=== PATIENT | male | born 1985 | race Caucasian/White ===

== ENCOUNTER 2018-03-08 17:58 | Emergency (ER) | payer OTHER ==
[2018-03-08 18:32] VITALS: BP 108/65
[2018-03-08] MEDS ORDERED: Albuterol HFA INHALER* 8 gm MDI INH ONE (19:07)
--- NOTE | 2018-03-08 19:09 | UC ---
Respiratory Complaint HPI - HPI Summary HPI Summary: Patient urgent care with cough chest congestion his ran out of his albuterol inhaler but soft and noticed that he's got postnasal drip and sore throat the morning and some swollen ice as well - History of Current Complaint Chief Complaint: UCRespiratory Stated Complaint: ASTHMA/CONGESTION/ST Time Seen by Provider: 03/08/18 18:57 Hx Obtained From: Patient Onset/Duration: Gradual Onset, Lasting Days Timing: Constant Pain Intensity: 0 Aggravating Factors: Nothing Alleviating Factors: Nothing Associated Signs And Symptoms: Positive: Pleuritic Chest Pain, Nasal Congestion , Sinus Discomfort - Allergies/Home Medications Allergies/Adverse Reactions: Allergies Allergy/AdvReac Type Severity Reaction Status Date / Time No Known Allergies Allergy Verified 03/08/18 18:32 Home Medications: Home Medications Ibuprofen TAB* [Motrin TAB* 600 MG] 600 mg PO Q8H PRN 03/08/18 [History Confirmed 03/08/18] Loratadine [Claritin 10 MG CAP] 10 mg PO DAILY 03/08/18 [History Confirmed 03/08] PMH/Surg Hx/FS Hx/Imm Hx Previously Healthy: No Respiratory History: Asthma - Surgical History Surgical History: Yes Surgery Procedure, Year, and Place: hernia surgery as a child. finger surgery - Family History Known Family History: Positive: None - Social History Occupation: Employed Full-time - Never tonight Lives: With Family Alcohol Use: Occasionally Substance Use Type: None Smoking Status (MU): Never Smoked Tobacco Review of Systems Constitutional: Negative Skin: Negative Eyes: Negative ENT: Sore Throat, Nasal Discharge Respiratory: Cough Cardiovascular: Negative Gastrointestinal: Negative Genitourinary: Negative Motor: Negative Neurovascular: Negative Musculoskeletal: Negative Neurological: Negative Psychological: Negative Is Patient Immunocompromised?: No All Other Systems Reviewed And Are Negative: Yes Physical Exam Triage Information Reviewed: Yes Appearance: Well-Appearing, No Pain Distress, Well-Nourished Vital Signs: Initial Vital Signs Temp 98.7 F 03/08/18 18:27 Pulse 90 03/08/18 18:27 Resp 18 03/08/18 18:27 BP 108/65 03/08/18 18:27 Pulse Ox 97 03/08/18 18:27 Vital Signs Reviewed: Yes Eye Exam: Normal Eyes: Positive: Conjunctiva Clear ENT Exam: Normal ENT: Positive: Normal ENT inspection, Hearing grossly normal, Pharynx normal, Nasal congestion, Nasal drainage, Uvula midline. Negative: Trismus, Muffled voice, Hoarse voice, Dental tenderness, Sinus tenderness Dental Exam: Normal Neck exam: Normal Neck: Positive: Supple, Nontender Respiratory Exam: Normal Respiratory: Positive: Chest non-tender, Normal breath sounds, No respiratory distress, No accessory muscle use, Wheezing Cardiovascular Exam: Normal Cardiovascular: Positive: RRR, No Murmur, Pulses Normal, Brisk Capillary Refill Musculoskeletal Exam: Normal Musculoskeletal: Positive: Strength Intact, ROM Intact, No Edema Neurological Exam: Normal Neurological: Positive: Alert, Muscle Tone Normal Psychological Exam: Normal Skin Exam: Normal UC Diagnostic Evaluation - Laboratory O2 Sat by Pulse Oximetry: 97 Diagnostic Studies Comment: rst (-) Respiratory Course/Dx - Course Course Of Treatment: Patient can continue to use Claritin, his albuterol was refilled today, also Flonase nasal spray increase fluids follow with primary care doctor return as needed - Differential Dx/Diagnosis Provider Diagnoses: Allergic rhinitis, bronchospastic cough Discharge - Sign-Out/Discharge Documenting (check all that apply): Discharge/Admit/Transfer - Discharge Plan Condition: Stable Disposition: HOME Prescriptions: Albuterol HFA INHALER* [Ventolin HFA Inhaler*] 2 puff INH Q4H PRN #1 mdi PRN Reason: cough/chest tightness Albuterol HFA INHALER* [Ventolin HFA Inhaler*] 2 puff INH Q4H PRN #1 mdi PRN Reason: cough/chest tightness Fluticasone NASAL SPRAY 50MCG* [Flonase NASAL SPRAY 50MCG*] 2 spray BOTH NARES DAILY #1 btl Fluticasone NASAL SPRAY 50MCG* [Flonase NASAL SPRAY 50MCG*] 2 spray BOTH NARES DAILY #1 btl predniSONE TAB* [Deltasone TAB*] 40 mg PO DAILY 4 Days #8 tab predniSONE TAB* [Deltasone TAB*] 40 mg PO DAILY 4 Days #8 tab Patient Education Materials: Allergic Rhinitis (ED), Allergies (ED), How to Use a Metered-Dose Inhaler and a Spacer (ED), How to Use Nasal [place] (ED) Referrals: [facility] [Outside] - If Needed - Billing Disposition and Condition Condition: STABLE Disposition: HOME
== END 2018-03-08 19:52 | disposition home or self-care (01) ==
LOC: UCCORT 17:58
DX: J45.909 Unspecified asthma, uncomplicated (principal); J30.9 Allergic rhinitis, unspecified; R05 Cough
CPT/HCPCS: 87651; 99203; A9270-GY; G0463

== ENCOUNTER 2018-04-07 19:07 | Emergency (ER) | payer OTHER ==
[2018-04-07 19:33] VITALS: BP 119/72
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
--- NOTE | 2018-04-07 20:44 | RAD ---
Indication: Left knee pain. 4 views of left knee demonstrates no fracture. No other bone or joint abnormality is noted. IMPRESSION: No fracture of the left knee is noted.
== END 2018-04-07 20:58 | disposition home or self-care (01) ==
LOC: UCCORT 19:07
DX: M25.462 Effusion, left knee (principal)
CPT/HCPCS: 99211; G0463